=== PATIENT | male | born 1985 | race Caucasian/White ===

== ENCOUNTER 2023-01-21 10:31 | Outpatient (CLI) | payer OTHER ==
[2023-01-21 11:29] VITALS: BP 140/78
--- NOTE | 2023-01-21 11:29 | SLEEP CARE CONSULTATION ---
Information from patient questionnaire entered by Jairo Uribe. I have reviewed and concur with the information entered by Jairo Uribe. This document represents the service I personally performed and the decisions made by me, Zarina Prince ARNP. History of Present Illness Service Date and Time: 01/21/2023 1031 Reason for Visit: New patient Chief Complaint: reports: Unrefreshed sleep, Snoring, Excessive daytime sleepiness, Observed pauses in breathing, Fatigue Date of Onset: 6-7YRS Usual bedtime: 10PM Time it takes to fall asleep: 5-10MIN Snores at night: Yes Observed to quit breathing while asleep: Yes Sleeps alone due to snoring: Yes Number of times waking at night: 1-3 Reasons for waking at night: reports: Snoring, Gasping for air, Other (dry mouth). denies: Choking Toss, Turn, or Twitch while sleeping: Yes Recalls having dreams: No Usually gets out of bed at: 630AM Feels refreshed in the morning: No Morning headache: No Sleepy or fatigued during the day: Yes Ever fallen asleep while driving: No (drowsy driving on long road trips) Takes day naps: Yes (not often) Dreams during day naps: Yes Prior sleep studies: No Additional HPI information: I had the pleasure of seeing RENY BEASLEY today regarding the possibility of him having a sleep disorder. His current complaints are excessive daytime sleepiness, fatigue, snoring and unrefreshed sleep. He states snoring is the main reason for coming in today. He does not feel he is rested in the morning. He states the snoring has been getting progressively worse in last year or so. He states his tells him that he will snore loudly and then gets quiet and will inhale loudly. He has woke up feeling like he is gasping for air. He states he does not remember his dreams. He does not normally take naps because there are a lot of activities he is doing after work to take kids to sports, etc. 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 Patient is and lives in [place]. Have you smoked in the past 12 months: No Years of smokin Quit date: 2007 Alcohol use: Yes Alcohol amount and frequency: 1-2 DRINKS 2-3TIMES A MONTH Caffeine use: Yes Caffeine amount and frequency: 24OZ COFFEE DAILY Family History Family history of sleep disordered breathing: No Allergies and Home Medications Known drug allergies: Yes ([facility]) Drug allergies reviewed: Yes Home medication list reviewed: Yes Allergy and home medication list: Medications: Losartan Review of Systems Weight gain over past 5 years: 18 Cardiovascular: reports: high blood pressure Respiratory: reports: shortness of breath, wheeze Gastrointestinal: reports: heartburn, difficulty swallowing, diarrhea Neurological: reports: gait or balance problems. denies: headaches Psychiatric: denies: Attention Deficit Hyperactivity, anxiety, depression Ear/Nose/Throat: reports: nasal congestion, sinus problems, nose bleeds, injury to nose, tonsillectomy, wisdom teeth removed Endocrine: reports: sluggishness, too hot or cold, excessive thirst Musculoskeletal: reports: joint pain, neck pain, back pain Immunologic: reports: sneezing Physical Exam Vital signs obtained and entered by: JAIRO Smith MA Blood Pressure: 140/78 (LEFT ARM) Cuff size: regular Heart Rate: 73 O2 Saturation: 97 Height: 5 ft 10 in Weight: 210 lb 9.6 oz Body Mass Index: 30.2 BMI Classification: Obese Neck circumference: 16.75 Mouth and throat: narrow oropharynx Soft palate: long Hard palate: arched Uvula: normal Uvula visualization: 25% Mallampati Class III Tongue: enlarged in size with teeth green on lateral edges Tonsils: absent bilaterally Neck: normal w/o lymphadenopathy or thyromegaly Heart: regular rate and rhythm Lungs: clear bilaterally Impression and Plan 1. Suspected Obstructive Sleep Apnea-Hypopnea Syndrome, as suggested by a history of loud and irregular snoring, observed cessation of breath while asleep, gasping or choking in sleep, unrefreshed sleep, cognitive impairment, and excessive daytime sleepiness. Narrow oropharynx and obesity are common predisposing factors for obstructive sleep apnea-hypopnea syndrome. I recommend proceeding to polysomnography to confirm the diagnosis and to assess severity. If the patient has significant sleep disordered breathing, a manual CPAP titration study will also be performed to find the optimal treatment pressure. I informed the patient of what the sleep studies involve and after some discussion, obtained agreement to proceed. The pathophysiology of obstructive sleep apnea-hypopnea syndrome was discussed with the patient and health risks of cardiovascular and cerebrovascular disease if not treated. 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 Patient agreed to plan. * Schedule polysomnography * Avoid long distance driving or driving when feeling sleepy. * Avoid alcohol, sedative and muscle relaxant around bedtime. * Attempt to lose weight. * Review instructions provided by trained office staff on how to prepare for the sleep study. * Return for follow-up after sleep study completed. Counseling Topics: Weight loss health impact Visit Type: In Office Time Spent with Patient (minutes): 30 Provider Statement: I spent 100% of the Face to Face Visit with the patient with greater than 50% spent counseling the patient and coordination of care.
== END 2023-01-21 10:32 | disposition home or self-care (01) ==
LOC: SC 10:31
PROVIDERS: ATTEND Nurse Practitioner Family
DX: R06.83 Snoring (principal); G47.8 Other sleep disorders; R06.81 Apnea, not elsewhere classified; G47.10 Hypersomnia, unspecified; R53.83 Other fatigue; I10 Essential (primary) hypertension; E66.9 Obesity, unspecified; Z68.30 Body mass index [BMI] 30.0-30.9, adult; Z87.891 Personal history of nicotine dependence
CPT/HCPCS: 99203; 99212

== ENCOUNTER 2023-01-27 20:30 | Outpatient (CLI) | payer OTHER | END 2023-01-27 20:31 | disposition home or self-care (01) | LOC: SC 20:30 | PROVIDERS: ATTEND Nurse Practitioner Family | DX: G47.33 Obstructive sleep apnea (adult) (pediatric) (principal); E66.9 Obesity, unspecified; Z68.30 Body mass index [BMI] 30.0-30.9, adult | CPT/HCPCS: 95810 ==

== ENCOUNTER 2023-02-06 08:19 | Outpatient (CLI) | payer OTHER ==
[2023-02-06 08:50] VITALS: BP 132/90
--- NOTE | 2023-02-06 08:50 | SLEEP CARE CONSULTATION ---
Information from patient questionnaire entered by Eliana Uribe. I have reviewed and concur with the information entered by Eliana Uribe. This document represents the service I personally performed and the decisions made by , Zarina Prince ARNP. History of Present Illness Service Date and Time: 02/06/2023 08 Initial [place] Sleepiness Scale score: 22 (01/21/23) Current [place] Sleepiness Scale score: 20 (02/06/2023) Additional HPI information: RENY BEASLEY returns for follow up and results of the recently performed polysomnography. I explained the pathophysiology behind obstructive sleep apnea. We then spent quite a bit of time discussing different treatment options. For mild obstructive sleep apnea, surgery and oral appliance are alternatives to nasal CPAP therapy but in moderate or severe cases, nasal CPAP is the most effective and reliable treatment. Because apnea is primarily in supine position, then positional management therapy could be effective. Methods discussed such as positioning with pillows t o prevent supine sleep. I reviewed the impact of weight changes on sleep apnea and strongly recommended losing weight. After some discussion, the patient opted to go with the nasal CPAP therapy. Nasal autoCPAP set at 4-15 cmH20 will be ordered with rationale explained. A manual titration study will be ordered if unable to find optimal pressure with office adjustments. I explained how CPAP machine works and what to expect when using the machine. Using CPAP every night in order to get used to it was emphasized. Patient advised to put CPAP mask on before getting into bed so as not to fall asleep without CPAP. To assist acclimation to CPAP use, it could also be used for a short time during day while reading or watching TV. The patient was instructed to call the CPAP supplier to discuss any mechanical problem that may occur. If the mask given is uncomfortable or is difficult to keep on through the night even with adjustment, contact the CPAP supplier as many will replace with another mask style if notified before 30 days. If snoring or perceives is not getting enough air or too much air from the machine, notify this office. Patient counseled not drink alcohol less than 4 hours before bedtime as it can increase snoring and apnea. Patient was cautioned about risks of drowsy driving until sleepiness symptoms resolve. Sleep Study - Results Type of Sleep Study: Polysomnography (COMPLETED 01/27/23) Prior sleep studies: No Polysomnography/Home Sleep Study results: IMPRESSION: The quality of the study is good. The patient had reduced sleep efficiency due to frequent awakenings throughout the night. The sleep architecture was abnormal for sleep fragmentation and lack of slow wave sleep (N3). Respiratory monitoring showed severe obstructive sleep apnea- hypopnea (AHI = 48.4) associated with frequent arousals, oxyhemoglobin desaturation and moderate hypoxia (jaren oxygen saturation of 75%). Baseline oxygen saturation was normal. The respiratory events occurred more frequently during supine sleep (supine AHI = 69.0; non-supine = 32.58). Snore was moderate to loud in intensity. There was no significant periodic leg movement of sleep. Cardiac rhythm was normal sinus rhythm without significant arrhythmia. No abnormal behavior (parasomnia) observed during the night. Allergies and Home Medications Known drug allergies: Yes (cefazolin) Drug allergies reviewed: Yes Home medication list reviewed: Yes (no changes) Review of Systems Review of systems same as previous: Yes (no changes) Physical Exam Vital signs obtained and entered by: ELIANA Smith MA Blood Pressure: 132/90 (LEFT ARM) Cuff size: regular Heart Rate: 88 O2 Saturation: 96 Height: 5 ft 10 in Weight: 209 lb 9.6 oz Body Mass Index: 30.0 BMI Classification: Obese Impression and Plan 1. Obstructive Sleep Apnea-Hypopnea Syndrome, severe, with lowest oxygen saturation of 75%. Obviously this is the cause of the patients symptoms of unrefreshed sleep, and excessive daytime sleepiness. Positive pressure therapy could benefit hypertension. As mentioned above, the patient will be started on nasal autoCPAP therapy with pressure set at 4-15 cmH2O. A manual titration study will be completed if unable to find optimal treatment pressure with office adjustments. Compliance guidelines also reviewed. A copy of compliance guidelines will be given for reference at check out. Because the apnea is more severe supine, I instructed to avoid sleeping supine using pillow positioning until able to start CPAP use. 2. Hypoxemia, moderate, with a jaren oxygen saturation of 75% and 20.0 minutes spent under 90%. His baseline oxygen saturation was normal with an average oxygen saturation of 93%. * Nasal auto CPAP therapy, pressure at 4-15 cm H2O. * Attempt to lose weight. * Avoid alcohol consumption near bedtime. * Avoid supine sleep until using CPAP. * The patient is again cautioned about driving until sleepiness completely resolves. * Return one month after CPAP obtained. I will assess response to therapy and compliance at that time. Counseling Topics: Weight loss health impact Visit Type: In Office Time Spent with Patient (minutes): 21 Provider Statement: I spent 100% of the Face to Face Visit with the patient with greater than 50% spent counseling the patient and coordination of care.
== END 2023-02-06 08:20 | disposition home or self-care (01) ==
LOC: SC 08:19
PROVIDERS: ATTEND Nurse Practitioner Family
DX: G47.33 Obstructive sleep apnea (adult) (pediatric) (principal); R09.02 Hypoxemia; E66.9 Obesity, unspecified; Z68.30 Body mass index [BMI] 30.0-30.9, adult
CPT/HCPCS: 99212; 99213

== ENCOUNTER 2023-03-25 10:27 | Outpatient (CLI) | payer OTHER | END 2023-03-25 10:28 | disposition home or self-care (01) | LOC: SC 10:27 | PROVIDERS: ATTEND Nurse Practitioner Family | DX: Z53.9 Procedure and treatment not carried out, unspecified reason (principal) ==

== ENCOUNTER 2023-04-10 11:57 | Outpatient (CLI) | payer OTHER ==
--- NOTE | 2023-04-10 11:59 | SLEEP CARE CONSULTATION ---
Information from patient questionnaire entered by Eliana Uribe. I have reviewed and concur with the information entered by Eliana Uribe. This document represents the service I personally performed and the decisions made by me, Zarina Prince ARNP. History of Present Illness Service Date and Time: 04/10/2023 1140 Previous diagnosis: Severe, Obstructive Sleep Apnea-Hypopnea Syndrome AHI: 48.4 (in 2022) Reason for follow up: first compliance Equipment type: CPAP (Resmed Airsense 10 s/u 01/2023) Equipment obtained from: Other ([facility]; got initial supplies) Mask style: Full face (medium cushion) Mask brand: [id number] Backup mask available: No (will keep old mask when replaced) Prior sleep studies: No Type of Sleep Study: Polysomnography (COMPLETED 01/27/23) HPI additional information: RENY BEASLEY was diagnosed to have severe, AHI 48.4, obstructive sleep apnea-hypopnea syndrome and returns via video telehealth visit today for CPAP therapy first compliance follow-up. Sleep Study - Results Type of Sleep Study: Polysomnography (COMPLETED 01/27/23) Prior sleep studies: No CPAP Compliance Data - Data Reviewed with Patient Average duration of nightly device use: 5 hours 11 minutes Compliance rate %: 70 (29/30 days used) Current pressure setting (cmH2O): 4-15 (median 6.5, avg 10.2, maximum 12.0) Average residual AHI: 0.8 Central apnea: 0.4 Obstructive apnea: 0.3 Average large leak: 0.2 L/min Subjective Missed days of use due to: reports: mask issues Patient concerns: reports: mask discomfort (sores on top of nose if don't use a bandaid), air blowing in eyes (just needs to readjust the mask). denies: aerophagia, mask leak noise, condensation in mask/hose, nasal congestion, dry mouth, nose, throat, epistaxis Observed to snore while using device: No Current pressure setting perceived as: comfortable On therapy, patient: reports: sleeping better, awakening more refreshed, being more awake and alert during the day, more rested overall. denies: drowsiness while driving Initial [place] Sleepiness Scale score: 22 (01/21/23) Current [place] Sleepiness Scale score: 6 Allergies and Home Medications Known drug allergies: Yes (cefazolin) Drug allergies reviewed: Yes Home medication list reviewed: Yes (no changes) Allergy and home medication list: Allergies cefazolin [From Ancef] Allergy (Verified 04/09/23 09:11) Review of Systems Review of systems same as previous: Yes (no changes) Physical Exam Vital signs obtained and entered by: per patient Height: 5 ft 10 in Weight: 198 lb (per pt) Body Mass Index: 28.4 BMI Classification: Overweight Impression and Plan 1. Obstructive Sleep Apnea-Hypopnea Syndrome, severe, with good treatment compliance and good apnea control. On CPAP therapy, the patient has better sleep quality and is more rested overall. He has been having trouble with his mask making sores on the bridge of his nose. He has to wear bandaids over the bridge with the medium cushion of the [employer] [place] full face mask or he has sores. He was hoping to try a mask with memory foam. We discussed other types of full face masks and he decided to try a hybrid full face mask. I wrote for the DME to send him a ResMed Airfit F30i mask set with small/medium/large cushion pack. 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 The patients pressure will be changed to autoCPAP 10-12 cmH20 to reflect pressure being used. Patient advised to contact me if pressure change is uncomfortable so that it can be adjusted. Goals for apnea control discussed. Patient's apnea severity and rationale for treatment to reduce apnea, improve sleep quality and reduce cardiovascular and cerebrovascular events was reviewed. I also reviewed the benefit of consistent device use of CPAP for hypertension. 2. Overweight, unspecified. Currently patients BMI is 28.4. Obesity increases the risk of apnea, CPAP pressure requirements and overall health risks especially cardiovascular and diabetes. Thus patient is advised to lose weight. * Change auto CPAP pressure to 10-12 cmH2O * Try hybrid full face mask: Resmed Airfit F30i * Notify me if snoring with mask or feeling that the pressure is too much or too little * Attempt to lose weight * Call this office if any problems using CPAP * Return for follow up in 3 months, or sooner if concerns arise Counseling Topics: Spare mask, Weight loss health impact Visit Type: Telehealth Video Video Type: Doximity Patient Location: deployed Location of Provider: Office Patient agrees and consents to this telehealth visit type: Yes Patient agrees to have their insurance billed: Yes Time Spent with Patient (minutes): 31 Provider Statement: I spent 100% of the Telehealth Video Call with the patient with greater than 50% spent counseling the patient and coordination of care.
== END 2023-04-10 11:58 | disposition home or self-care (01) ==
LOC: SC 11:57
PROVIDERS: ATTEND Nurse Practitioner Family
DX: G47.33 Obstructive sleep apnea (adult) (pediatric) (principal); E66.3 Overweight; Z68.28 Body mass index [BMI] 28.0-28.9, adult

== ENCOUNTER 2023-07-18 14:19 | Outpatient (CLI) | payer OTHER ==
--- NOTE | 2023-07-18 13:47 | SLEEP CARE CONSULTATION ---
Information from patient questionnaire entered by Eliana Uribe. I have reviewed and concur with the information entered by Eliana Uribe. This document represents the service I personally performed and the decisions made by , Zarina Prince ARNP. History of Present Illness Service Date and Time: 07/18/2023 1320 Previous diagnosis: Severe, Obstructive Sleep Apnea-Hypopnea Syndrome AHI: 48.4 (in 2022) Reason for follow up: three month (F/U) Equipment type: CPAP (RESMED Airsense 10, s/u 01/2023) Equipment obtained from: Other ([facility]; [employer] supplies) Mask style: Full face (medium cushion) Mask brand: Resmed (AirFit F30i) Backup mask available: Yes (other mask) Last cushion change: 1 month Prior sleep studies: No Type of Sleep Study: Polysomnography (COMPLETED 01/27/23) HPI additional information: RENY BEASLEY was diagnosed to have severe, AHI 48.4, obstructive sleep apnea-hypopnea syndrome and returned today for CPAP therapy three month follow- up. 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 denies: aerophagia, mask discomfort, air blowing in eyes, dry mouth, nose, throat, epistaxis Observed to snore while using device: No Current pressure setting perceived as: comfortable On therapy, patient: reports: sleeping better, awakening more refreshed, being more awake and alert during the day, more rested overall. denies: drowsiness while driving Initial [place] Sleepiness Scale score: 22 (01/21/23) Current [place] Sleepiness Scale score: 1 Allergies and Home Medications Known drug allergies: Yes (cefazolin) Drug allergies reviewed: Yes Home medication list reviewed: Yes (no changes) Allergy and home medication list: Allergies cefazolin [From Ancef] Allergy (Verified 07/17/23 16:11) Review of Systems Review of systems same as previous: Yes (no changes) Physical Exam Vital signs obtained and entered by: Zarina Ravi NP Height: 5 ft 9 in Weight: 200 lb Body Mass Index: 29.5 BMI Classification: Overweight Impression and Plan 1. Obstructive Sleep Apnea-Hypopnea Syndrome, severe, with fair treatment compliance and good apnea control. On CPAP therapy, the patient has better sleep quality and is more rested overall. He has been using the AirFit F30 I but does not really like the way the cushion fits. He is getting leaking around the mask. He has been talking with others who suggest he try a fullface mask with memory foam. I will write for change to the ResMed AirTouch F20. He is supposed to be back in 2 weeks. Patient's apnea severity and rationale for treatment to reduce apnea, improve sleep quality and reduce cardiovascular and cerebrovascular events was reviewed. I also reviewed the benefit of consistent device use of CPAP for hypertension. Patient also states that he needs to have a wakefulness test for his job. He has had good results with his CPAP use and improvement of his symptoms. His [place] score is at 1 out of 24 possible. I will order this to see if we can get get authorization to set him up with a wakefulness test. 2. Overweight, unspecified. Currently patients BMI is 29.5. Obesity increases the risk of apnea, CPAP pressure requirements and overall health risks especially cardiovascular and diabetes. Thus patient is advised to lose weight. * Continue auto CPAP pressure at 10-12.2 cmH2O * Change mask to full face ResMed AirTouch F20, medium cushion * MWT * Notify me if snoring with mask or feeling that the pressure is too much or too little * Attempt to lose weight * Call this office if any problems using CPAP * Return for follow up in 1 year, or sooner if concerns arise Counseling Topics: Spare mask, Weight loss health impact Visit Type: Telehealth Video Video Type: Doximity Patient Location: [place] Location of Provider: Office Patient agrees and consents to this telehealth visit type: Yes Patient agrees to have their insurance billed: Yes Time Spent with Patient (minutes): 26 Provider Statement: I spent 100% of the Telehealth Video Call with the patient with greater than 50% spent counseling the patient and coordination of care.
== END 2023-07-18 14:20 | disposition home or self-care (01) ==
LOC: SC 14:19
PROVIDERS: ATTEND Nurse Practitioner Family
DX: G47.33 Obstructive sleep apnea (adult) (pediatric) (principal); E66.3 Overweight; Z68.29 Body mass index [BMI] 29.0-29.9, adult

== ENCOUNTER 2023-08-26 07:07 | Outpatient (CLI) | payer OTHER | END 2023-08-26 07:08 | disposition home or self-care (01) | LOC: SC 07:07 | PROVIDERS: ATTEND Nurse Practitioner Family | DX: G47.10 Hypersomnia, unspecified (principal); G47.33 Obstructive sleep apnea (adult) (pediatric) | CPT/HCPCS: 80306; 95805 ==

== ENCOUNTER 2023-12-24 09:04 | Outpatient (CLI) | payer OTHER ==
--- NOTE | 2023-12-24 09:22 | Sleep Patient Instructions ---
Sleep Center Visit Summary - Patient Visit Information Reason for Visit: Follow-up 4 MWT - Patient Instructions Additional Instructions: You were here for follow up for results of MWT. Your results were normal with no evidence of daytime sleepiness. You will be continued on CPAP therapy with pressure at 10-12.2 cmH2O. You should follow up with sleep care in 12 months. You may contact us sooner for any questions or concerns. - Clinic Information Contact: [facility] [address] [place] [address] [email or web address] T: [phone]
--- NOTE | 2023-12-24 09:26 | SLEEP CARE CONSULTATION ---
Information from patient questionnaire entered by Eliana Uribe. I have reviewed and concur with the information entered by Eliana Uribe. This document represents the service I personally performed and the decisions made by me, Zarina Prince ARNP. History of Present Illness Service Date and Time: 12/24/2023 0904 Initial [place] Sleepiness Scale score: 22 (01/21/23) Current [place] Sleepiness Scale score: 3 (12/24/23) Additional HPI information: RENY BEASLEY returns for follow up of the MWT performed on 08/26/2023. The patient was informed of the following polysomnography findings: His MWT was normal with no evidence of daytime sleepiness. Sleep Study - Results Type of Sleep Study: Polysomnography (COMPLETED 01/27/23 MWT COMPLETED ON 08/26/23) Prior sleep studies: No Polysomnography/Home Sleep Study results: Physicians Interpretation This a normal MWT. There is no evidence of daytime sleepiness. Allergies and Home Medications Known drug allergies: Yes (as listed) Drug allergies reviewed: Yes Home medication list reviewed: Yes (no changes) Allergy and home medication list: Allergies cefazolin [From Ancef] Allergy Review of Systems Review of systems same as previous: Yes (NO CHANGE) Physical Exam Vital signs obtained and entered by: ELIANA Smith MA Blood Pressure: 147/94 (LEFT ARM) Cuff size: regular Heart Rate: 69 O2 Saturation: 96 Height: 5 ft 9 in Weight: 217 lb 3.2 oz Body Mass Index: 32.1 BMI Classification: Obese Impression and Plan 1. Obstructive Sleep Apnea-Hypopnea Syndrome, severe. Reny returns for results of his MWT performed on August 26, 2023. This was a normal MWT with no evidence of excessive daytime sleepiness noted during the study. On CPAP therapy, the patient has better sleep quality and is more rested overall. He is getting good results on CPAP therapy with reduction of his daytime sleepiness. Results have been sent to his referring physician. He states the AirTouch F20 mask is working better than his previous mask but he may need a larger mask cushion size. He is using the medium and it works but may be a little small. I had a large cushion in office of the AirTouch F20 that I sent home with him to try. It he thinks it fits better, he can inform his DME of mask cushion size change. He voiced understanding. We will follow up with him next year. Patient's apnea severity and rationale for treatment to reduce apnea, improve sleep q uality and reduce cardiovascular and cerebrovascular events was reviewed. I also reviewed the benefit of consistent device use of CPAP for hypertension. 2. Obesity, unspecified. Currently patients BMI is 32.1. Obesity increases the risk of apnea, CPAP pressure requirements and overall health risks especially cardiovascular and diabetes. Thus patient is advised to lose weight. * Continue auto CPAP pressure at 10-12.2 cmH2O * Notify me if snoring with mask or feeling that the pressure is too much or too little * Attempt to lose weight * Call this office if any problems using CPAP * Return for follow up in 1 year, or sooner if concerns arise Counseling Topics: Weight loss health impact Follow up with Sleep Care in: 1 year Visit Type: In Office Time Spent with Patient (minutes): 14 Provider Statement: I spent 100% of the Face to Face Visit with the patient with greater than 50% spent counseling the patient and coordination of care.
[2023-12-24 09:27] VITALS: BP 147/94; O2SAT 96
== END 2023-12-24 09:05 | disposition home or self-care (01) ==
LOC: SC 09:04
PROVIDERS: ATTEND Nurse Practitioner Family
DX: G47.33 Obstructive sleep apnea (adult) (pediatric) (principal); E66.9 Obesity, unspecified; Z68.32 Body mass index [BMI] 32.0-32.9, adult
CPT/HCPCS: 99212